=== PATIENT | male | born 1955 | race Caucasian/White ===

== ENCOUNTER 2017-11-14 14:15 | Emergency (ER) | payer SELFPAY ==
[2017-11-14 14:34] VITALS: BP 172/91; PULSE 91; O2SAT 98
--- NOTE | 2017-11-14 14:41 | ERPHSYRPT ---
- History of Present Illness Time Seen by Provider: 11/14/17 14:31 Source: patient Exam Limitations: no limitations Patient Subjective Stated Complaint: pt reports he was trying to remove a tree stump from the ground with a cable and the cable snapped and struck his right knee. pt complains of right knee laceration. Triage Nursing Assessment: pt is aox3, pt afebrile pupils perrl, resps easy and non labored, skin pink warm dry. two lacerations noted to the right knee, the first laceration measures 5cm in length, the more distal laceration measures 2 cm in length. bleeding is controlled. pt sensation is intact. Physician History: 62-year-old white male arrives with complaint of a laceration to his right knee since just prior to arrival. According to the patient he was trying to pull out tree stump out and a cable broke and struck him in the right knee he has laceration across right knee, He is not having any problems walking, Past medical history patient denies, Past surgical history patient denies Method of Injury: other (struck with cable on right knee while trying to pull stump out) Occurred: just prior to arrival Severity of Pain-Max: moderate Severity of Pain-Current: mild Lower Extremities Pain: knee: right Modifying Factors: Improves With: nothing Associated Symptoms: other (laceration right knee) Allergies/Adverse Reactions: Penicillins Allergy (Verified 11/14/17 15:49) Hx Tetanus, Diphtheria Vaccination/Date Given: No Hx Influenza Vaccination/Date Given: No Hx Pneumococcal Vaccination/Date Given: No Immunizations Up to Date: Yes - Review of Systems Constitutional: No Fever, No Chills Eyes: No Symptoms Ears, Nose, & Throat: No Symptoms Respiratory: No Cough, No Dyspnea Cardiac: No Chest Pain, No Edema, No Syncope Abdominal/Gastrointestinal: No Abdominal Pain, No Nausea, No Vomiting, No Diarrhea Genitourinary Symptoms: No Dysuria Musculoskeletal: Other (laceration right knee) Skin: Other (4 cm laceration right anterior knee) Neurological: No Dizziness, No Focal Weakness, No Sensory Changes Psychological: No Symptoms Endocrine: No Symptoms All Other Systems: Reviewed and Negative - Past Medical History Pertinent Past Medical History: No - Past Surgical History Past Surgical History: Yes - Social History Smoking Status: Never smoker Drug Use: none Patient Lives Alone: No - Nursing Vital Signs Nursing Vital Signs: Initial Vital Signs Temperature 97.9 F 11/14/17 14:24 Pulse Rate 91 H 11/14/17 14:24 Respiratory Rate 20 11/14/17 14:24 Blood Pressure 172/91 11/14/17 14:24 O2 Sat by Pulse Oximetry 98 11/14/17 14:24 Pain Scale Pain Intensity 0 - Physical Exam General Appearance: alert Eyes, Ears, Nose, Throat Exam: moist mucous membranes Neck Exam: non-tender, supple Cardiovascular/Respiratory Exam: chest non-tender, normal breath sounds, regular rate/rhythm, no respiratory distress Gastrointestinal/Abdominal Exam: non-tender, guarding Back Exam: normal inspection, No vertebral tenderness Hips Exam: bilateral: non-tender, normal inspection, normal range of motion, no evidence of injury Legs Exam: bilateral leg: non-tender, normal inspection, normal range of motion , no evidence of injury Knees Exam: right knee: other (4 cm laceration right anterior knee), left knee: non-tender, normal inspection, no evidence of injury, bilateral knee: normal range of motion Ankle Exam: bilateral ankle: non-tender, normal inspection, normal range of motion, no evidence of injury Foot Exam: bilateral foot: non-tender, normal inspection, normal range of motion , no evidence of injury Neuro/Tendon Exam: normal sensation, normal motor functions Mental Status Exam: alert, oriented x 3, cooperative Skin Exam: normal color, warm, dry SpO2 Interpretation: normal (98%) SpO2: 98 - Course Nursing assessment & vital signs reviewed: Yes - Radiology Exams Right Knee X-ray Interpretation: Interpreted by me (x-ray right knee: No fractures, no subluxation soft tissue injury overlying patella anteriorly) Ordered Tests: Active Orders 24 hr Category Date Time Status Prepare for Sutures STAT Care 11/14/17 15:20 Active Sutures STAT Care 11/14/17 15:21 Active KNEE (3 VIEWS) Stat Exams 11/14/17 14:36 Taken Medication Summary Discontinued Medications Generic Name Dose Route Start Last Admin Trade Name Freq PRN Reason Stop Dose Admin Bacitracin Zinc 0.9 gm 11/14/17 15:20 11/14/17 16:11 Baciguent Packet TP 11/14/17 15:21 0.9 gm STAT ONE Administration Bacitracin Zinc Confirm 11/14/17 15:51 Baciguent Packet Administered 11/14/17 15:52 Dose 1 gm .ROUTE .STK-MED ONE Diphtheria/Tetanus/Acell Pertussis 0.5 ml 11/14/17 15:20 11/14/17 15:57 Adacel Vial IM 11/14/17 15:21 0.5 ml .ONCE ONE Administration Diphtheria/Tetanus/Acell Pertussis Confirm 11/14/17 15:52 Adacel Vial Administered 11/14/17 15:53 Dose 0.5 ml IM .STK-MED ONE Lidocaine HCl 5 ml 11/14/17 15:20 11/14/17 16:11 Xylocaine 1% Hcl 20 Ml Mdv IJ 11/14/17 15:21 5 ml STAT ONE Administration Lidocaine HCl Confirm 11/14/17 15:52 Xylocaine 1% Hcl 20 Ml Mdv Administered 11/14/17 15:53 Dose 1 ml .ROUTE .STK-MED ONE - Progress Progress: improved Progress Note: 11/14/17 16:22 62-year-old white male arrives with complaint of laceration to his right knee. Patient was apparently trying to pull a stump and he was struck on his right knee with a cable. He has a deep laceration to the right anterior patella he has full range of motion to the right knee. Dorsal pedal posterior tibial pulses are intact. Repair of 4 cm laceration right knee. Laceration sterilely prepped and draped also irrigated by the patient's nurse. Laceration is anesthetized with 1% lidocaine. Laceration is sutured with 9 4-0 Ethilon interrupted sutures. Bacitracin is applied. Asa wrap will be placed for today. Will give patient a right knee immobilizer. Will place patient on clindamycin 300 mg orally 3 times a day 7 days. Will write for [place] for pain. - Departure Time of Disposition: 16:24 Departure Disposition: Home Clinical Impression: Laceration of right knee Qualifiers: Encounter type: initial encounter Qualified Code(s): S81.011A - Laceration without foreign body, right knee, initial encounter Contusion of right knee Qualifiers: Encounter type: initial encounter Qualified Code(s): S80.01XA - Contusion of right knee, initial encounter Condition: Fair Critical Care Time: No Referrals: DIOMEDES FREITAS DO [Primary Care Provider] - Instructions: Laceration Repair With Stitches (DC) Additional Instructions: Return home. Keep area clean and dry bacitracin to area until healed. Sutures out in 10 days. [place] as prescribed. Clindamycin as prescribed. Follow-up with your family doctor Thursday call for an appointment. Return or follow-up with your family doctor if signs of infection or problems. Return for acute distress or for severe symptoms. cold packs right knee 24-48 hours. leave asa wrap on until tomorrow . Prescriptions: Clindamycin HCl 300 mg PO TID #21 capsule Hydrocodone/Acetaminophen [[place] 5-325 Tablet] 1 tab PO Q4-6HPRN PRN #12 tablet MDD 6 tablets PRN Reason: Pain
[2017-11-14] MEDS ORDERED: BACIGUENT PACKET ONE (15:51)
[2017-11-14] MEDS ORDERED: XYLOCAINE 1% HCL 20 ML MDV ONE (15:52)
[2017-11-14] MEDS ORDERED: Adacel Vial IM ONE (15:52)
[2017-11-14] MEDS: Adacel Vial IM ONE (15:57)
[2017-11-14] MEDS: XYLOCAINE 1% HCL 20 ML MDV IJ ONE (16:11)
[2017-11-14] MEDS: BACIGUENT PACKET TP ONE (16:11)
--- NOTE | 2017-11-14 20:51 | XRAY ---
Indication: Pain and laceration following injury. Comparison: None 3 views of the right knee demonstrates anterior soft tissue swelling/laceration with overlying bandage material. Elsewhere mild medial joint space narrowing, small suprapatellar spurring, and mild scattered vascular calcifications. No other bony, articular, or soft tissue abnormalities.
== END 2017-11-14 16:50 | disposition home or self-care (01) ==
LOC: ED 14:15
PROC: 0HQKXZZ Repair Right Lower Leg Skin, External Approach (ICD-10-PCS; principal; 2017-11-14)
DX: S81.011A Laceration without foreign body, right knee, initial encounter (principal); S80.01XA Contusion of right knee, initial encounter; W20.8XXA Other cause of strike by thrown, projected or falling object, initial encounter; Y93.H9 Activity, other involving exterior property and land maintenance, building and construction
CPT/HCPCS: 12002; 73562; 90471; 90715; 96372; 99283; L1830; A9270-GY

== ENCOUNTER 2023-05-07 20:28 | Emergency (ER) | payer MEDICARE ==
[2023-05-07 20:54] VITALS: RESP 18; TEMP 97.6; O2SAT 98
--- NOTE | 2023-05-07 21:12 | ERPHSYRPT ---
- History of Present Illness Time Seen by Provider: 05/07/23 20:48 Source: patient Exam Limitations: no limitations Patient Subjective Stated Complaint: pt states he was watching tv and felt something wet. pt states that he looked down and seen blood coming from his testicles Triage Nursing Assessment: pt ambulated into the er; pt is axo x4; c/o bleeding to rt testicle; pt states burning sensation to rt testicle; no active bleeding to rt testicle at time of assessment; skin PDW; no respiratory distress present; hypertensive Physician History: 67-year-old male not on any blood thinner, no history of blood dyscrasias presented in the ER with complains of right sided scrotal bleeding sudden onset while he was watching TV. Patient reports he felt something wet, scratched and there was bleeding. It continued for almost 20 minutes. Stopped on presentation in the ER. No difficulty urination. No swelling or redness of scrotum reported. No pain. Allergies/Adverse Reactions: Penicillins Allergy (Verified 05/07/23 20:43) Home Medications: No Reportable Medications [No Reported Medications] 05/07/23 [History] Hx Tetanus, Diphtheria Vaccination/Date Given: No (2018) Hx Influenza Vaccination/Date Given: No Hx Pneumococcal Vaccination/Date Given: No Travel Risk - International Travel Have you traveled outside of the country in past 3 weeks: No - Coronavirus Screening Are you exhibiting any of the following symptoms?: No Close contact with a COVID-19 positive Pt in past 14-21 Days: No - Vaccine Status Have you recieved a Covid-19 vaccination: No - Review of Systems Constitutional: No Symptoms Eyes: No Symptoms Respiratory: No Symptoms Cardiac: No Symptoms Abdominal/Gastrointestinal: No Symptoms Genitourinary Symptoms: Other Musculoskeletal: No Symptoms Skin: Skin Lesions Neurological: No Symptoms - Past Medical History Pertinent Past Medical History: No - Past Surgical History Past Surgical History: Yes - Social History Smoking Status: Former smoker Exposure to second hand smoke: No Drug Use: none Patient Lives Alone: No - Nursing Vital Signs Nursing Vital Signs: Initial Vital Signs Temperature 97.6 F 05/07/23 20:43 Pulse Rate 72 05/07/23 20:43 Respiratory Rate 18 05/07/23 20:43 O2 Sat by Pulse Oximetry 98 05/07/23 20:43 Pain Scale Pain Intensity 3 - Physical Exam General Appearance: no apparent distress, alert Eye Exam: PERRL/EOMI Neck Exam: normal inspection, full range of motion Respiratory Exam: normal breath sounds, lungs clear Cardiovascular Exam: regular rate/rhythm, normal heart sounds Male Genitalia Exam: normal genitalia, other (Abrasion right scrotal wall. No active bleeding spurting/oozing. No tenderness. No swelling. No erythema of the scrotum.), No testicular mass Extremity Exam: normal inspection, pelvis stable Neurologic Exam: alert, oriented x 3, cooperative Skin Exam: normal color SpO2 Interpretation: normal SpO2: 98 O2 Delivery: Room Air - Progress Progress: improved Progress Note: 05/07/23 21:09 67-year-old is evaluated in the ER for right scrotal bleeding. I did not appreciate any scrotal swelling. No active bleeding currently. Minimal abrasion. No history of blood dyscrasias and not taking any blood thinner. Bleeding is stopped. Do not think patient needs any workup and is stable for discharge. Recommended supportive care. Counseled pt/family regarding: diagnosis, need for follow-up Medical Desision Making - Independent Historian Additional History obtained from: Spouse - Diagnostic Testing Diagnostic test were ordered, analyzed, and reviewed by me: No - Departure Departure Disposition: Home Clinical Impression: Abrasion of scrotum Condition: Stable Critical Care Time: No Referrals: DEYA SIMMS MD [ACTIVE STAFF] - Follow up with PCP 1 day Instructions: Skin Abrasions (DC) Additional Instructions: Keep it clean and dry. Apply firm pressure. Tylenol/ibuprofen as needed. Return to ER for if started bleeding again, pain swelling etc.
[2023-05-07 21:20] VITALS: BP 154/85; PULSE 71
== END 2023-05-07 21:22 | disposition home or self-care (01) ==
LOC: ED 20:28
DX: S30.813A Abrasion of scrotum and testes, initial encounter (principal); Z20.828 Contact with and (suspected) exposure to other viral communicable diseases
CPT/HCPCS: 99281

== ENCOUNTER 2024-03-15 22:37 | Emergency (ER) | payer MEDICARE ==
[2024-03-15 22:59] VITALS: TEMP 97.3
[2024-03-15 23:06] LABS: Absolute Neutrophil Ct (ANC) 4.55 x10^3/uL (1.78-5.38); BASOPHIL % 0.6 % (0.2-1.2); Basophil (Absolute #) 0.05 x10^3/uL (0.01-0.08); Eosinophil % 2.6 % (0.8-7.0); Eosinophil (Absolute #) 0.23 x10^3/uL (0.04-0.54); Hemoglobin 15.4 g/dL (13.7-17.5); IMMATURE GRAN # 0.02 x10^3u/L (0.001-0.031); IMMATURE GRAN % 0.2 % (0.001-0.429); Lymphocyte (Absolute #) 3.03 x10^3/uL (1.32-3.57); Lymphocytes % 34.8 % (21.8-53.1); Mean Cell Volume 87.3 fL (79.0-92.2); Mean Corpuscular Hemoglobin 29.2 pg (25.7-32.2); Mean Corpuscular Hgb Concent. 33.5 g/dL (32.3-36.5); Mean Platelet Volume 9.8 fL (9.4-12.4); Monocyte (Absolute #) 0.82 x10^3/uL (0.30-0.82); Monocytes % 9.4 % (5.3-12.2); Neutrophil % 52.4 % (34.0-67.9); Platelet Count 281 x10^3/uL (163-337); Red Blood Count 5.27 x10^6/uL (4.63-6.08); Red Cell Distribution Width 13.2 % (11.6-14.4); White Blood Count 8.7 x10^3/uL (4.23-9.07)
[2024-03-15 23:16] LABS: ALBUMIN 4.6 g/dL (3.5-5.0); ANION GAP 11.1 MEQ/L (5-15); BILIRUBIN,TOTAL 0.5 mg/dL (0.2-1.3); Calcium 9.6 mg/dL (8.4-10.2); Creatinine 1 1.17 mg/dL (0.66-1.25); EST GLOMERULAR FILTRATION RATE 67.1 ML/MIN; Potassium 3.9 mmol/L (3.5-5.1); Total Protein 7.8 g/dL (6.3-8.2)
--- NOTE | 2024-03-15 23:34 | ERPHSYRPT ---
- History of Present Illness Time Seen by Provider: 03/15/24 22:45 Historian: patient Exam Limitations: no limitations Patient Subjective Stated Complaint: pt states he was watching tv and began to have chest pain. pt states pain radiates to left arm Triage Nursing Assessment: pt ambulated into the er; pt is axo x 4; c/o chest pain; pt states 7/10 pain to chest and left arm; c/o dizziness; clear apical hear tone; clear lung sounds in all lobes; strong janie radial pulses; strong janie pedal pulses; pt states SOB; no respiratory distress present; skin PDW; hypertensive Physician History: 68-year-old male presents to emergency department for evaluation of left-sided chest pain. Patient states he quit smoking 20 years ago however patient smoked for approximately 40 years prior to quitting. Patient also reports that his father had a heart attack at age 40. Patient does not follow-up regularly with his primary care physician. Patient's chest pain started approximately 1 month ago. Patient experienced pain primarily in his left arm. The symptoms of gotten progressively worse now including his chest jaw teeth and arm. No nausea vomiting or diaphoresis. Symptoms are mild to moderate in intensity. Symptoms worse with exertion. Symptoms improved with rest. Patient voices no other complaints or concerns at this time. Portions of this note were created with voice recognition technology. There may be grammatical, spelling, punctuation or sound alike errors Timing/Duration: today Activities at Onset: activity Quality: aching Location: substernal Chest Pain Radiation: arm Severity of Pain-Max: moderate Severity of Pain-Current: mild Modifying Factors: Improves With: nothing Associated Symptoms: denies symptoms Prior Chest Pain/Cardiac Workup: no prior chest pain Nitro Today/Relief: no nitro taken today Aspirin Treatment Today: no aspirin today Allergies/Adverse Reactions: Penicillins Allergy (Verified 03/15/24 22:41) Home Medications: No Reportable Medications [No Reported Medications] 05/07/23 [History] Hx Tetanus, Diphtheria Vaccination/Date Given: No (2018) Hx Influenza Vaccination/Date Given: No Hx Pneumococcal Vaccination/Date Given: No Travel Risk - International Travel Have you traveled outside of the country in past 3 weeks: No - Emerging Infectious Disease Are you exhibiting symptoms associated with any current EIDs: No - Review of Systems Constitutional: No Symptoms, No Fever, No Chills Eyes: No Symptoms Ears, Nose, & Throat: No Symptoms Respiratory: No Symptoms, No Cough, No Dyspnea Cardiac: No Symptoms, No Chest Pain, No Edema, No Syncope Abdominal/Gastrointestinal: No Symptoms, No Abdominal Pain, No Nausea, No Vomiting, No Diarrhea Genitourinary Symptoms: No Symptoms, No Dysuria Musculoskeletal: No Symptoms, No Back Pain, No Neck Pain Skin: No Symptoms, No Rash Neurological: No Symptoms, No Dizziness, No Focal Weakness, No Sensory Changes Psychological: No Symptoms Endocrine: No Symptoms Hematologic/Lymphatic: No Symptoms Immunological/Allergic: No Symptoms All Other Systems: Reviewed and Negative - Past Medical History Pertinent Past Medical History: No - Past Surgical History Past Surgical History: Yes - Social History Smoking Status: Former smoker Exposure to second hand smoke: No Drug Use: none Patient Lives Alone: No - Social Determinants of Health Will the patient participate in the screening: Yes Do you worry about a steady place to live?: No Do you have any problems with any of the following?: No known problems In the past 12 months,have you had to go without utilities?: No Transportation Issues: No Has anyone in your support network made you feel unsafe?: No Have you or anyone in your house had to go without enough: No - Nursing Vital Signs Nursing Vital Signs: Initial Vital Signs Temperature 97.3 F 03/15/24 22:38 Pulse Rate 60 03/15/24 22:38 Respiratory Rate 22 03/15/24 22:38 Blood Pressure 191/82 03/15/24 22:38 O2 Sat by Pulse Oximetry 100 03/15/24 22:38 Pain Scale Pain Intensity 5 - Physical Exam General Appearance: no apparent distress, alert Eye Exam: PERRL/EOMI, eyes nml inspection Ears, Nose, Throat Exam: normal ENT inspection, moist mucous membranes Neck Exam: normal inspection, non-tender, supple, full range of motion Respiratory Exam: normal breath sounds, lungs clear, airway intact, No respiratory distress Cardiovascular Exam: regular rate/rhythm, normal heart sounds, normal peripheral pulses Gastrointestinal/Abdomen Exam: soft, No tenderness, No mass Back Exam: normal inspection, No CVA tenderness, No vertebral tenderness Extremity Exam: normal inspection, normal range of motion Neurologic Exam: alert, oriented x 3, cooperative, normal mood/affect, sensation nml, No motor deficits Skin Exam: normal color, warm, dry Lymphatic Exam: No adenopathy SpO2 Interpretation: normal SpO2: 99 O2 Delivery: Room Air - Course Nursing assessment & vital signs reviewed: Yes EKG Interpreted by Me: RATE (60), Sinus Rhythm, NORMAL AXIS, NORMAL INTERVALS, NORMAL QRS Ordered Tests: Active Orders 24 hr Category Date Time Status Diploma Maker STAT Care 03/15/24 22:54 Active EKG-ER Only STAT Care 03/15/24 22:54 Active Pulse Oximetry (ED) STAT Care 03/15/24 22:54 Active CHEST 1 VIEW (PORTABLE) Stat Exams 03/15/24 22:55 Taken CBC Q48H Lab 03/17/24 06:00 Ordered CBC Q48H Lab 03/19/24 06:00 Ordered CBC Q48H Lab 03/21/24 06:00 Ordered CBC Q48H Lab 03/23/24 06:00 Ordered CBC Q48H Lab 03/25/24 06:00 Ordered CBC Q48H Lab 03/27/24 06:00 Ordered CBC Q48H Lab 03/29/24 06:00 Ordered CBC Stat Lab 03/16/24 03:10 Ordered CBC W DIFF Stat Lab 03/15/24 22:54 Completed CMP Stat Lab 03/15/24 22:54 Completed D-DIMER QUANTITATIVE Stat Lab 03/15/24 23:34 Completed PROTIME WITH INR Stat Lab 03/16/24 03:10 Ordered PTT Q4H Lab 03/16/24 07:15 Ordered PTT Q4H Lab 03/16/24 11:15 Ordered PTT Q4H Lab 03/16/24 15:15 Ordered PTT Q4H Lab 03/16/24 19:15 Ordered PTT Q4H Lab 03/16/24 23:15 Ordered PTT Q4H Lab 03/17/24 03:15 Ordered PTT Q4H Lab 03/17/24 07:15 Ordered PTT Q4H Lab 03/17/24 11:15 Ordered PTT Q4H Lab 03/17/24 15:15 Ordered PTT Q4H Lab 03/17/24 19:15 Ordered PTT Q4H Lab 03/17/24 23:15 Ordered PTT Stat Lab 03/16/24 03:10 Ordered TROPONIN Q4H Lab 03/15/24 23:00 Completed TROPONIN Q4H Lab 03/16/24 02:00 Completed TROPONIN Q4H Lab 03/16/24 07:00 Ordered Medication Summary Generic Name Dose Route Start Last Admin Trade Name Freq PRN Reason Stop Dose Admin Heparin Sodium/Dextrose 25,000 units in 250 mls @ 10.668 mls/hr 03/16/24 03:30 Heparin 25,000 Units/D5w: Use Order Set Danielito IV 04/15/24 03:29 .[id number] CINDY Protocol 12 UNITS/KG/HR Nitroglycerin/Dextrose 250 mls @ 1.5 mls/hr 03/16/24 03:10 Ntg 0.2mg/Ml In D5w Glass IV 04/15/24 03:09 .Q24H PRN CHEST PAIN Protocol 5 MCG/MIN Discontinued Medications Generic Name Dose Route Start Last Admin Trade Name Fretiffany PRN Reason Stop Dose Admin Aspirin 324 mg 03/15/24 23:32 03/15/24 23:39 Aspirin 81 Mg Tab.Chew PO 03/15/24 23:33 324 mg STAT ONE Administration Aspirin Confirm 03/15/24 23:39 Aspirin 81 Mg Tab.Chew Administered 03/15/24 23:40 Dose 324 mg .ROUTE .STK-MED ONE Heparin Sodium (Beef Lung) 5,000 unit 03/16/24 03:10 Heparin 5000 Units/0.5 Ml 5,000 Unit/0.5 Ml Syr IV 03/16/24 03:11 STAT STA Heparin Sodium (Beef Lung) Confirm 03/16/24 03:15 Heparin 5000 Units/0.5 Ml 5,000 Unit/0.5 Ml Syr Administered 03/16/24 03:16 Dose 5,000 unit .ROUTE .STK-MED ONE Morphine Sulfate 4 mg 03/16/24 03:11 Morphine Sulfate 4 Mg/Ml Injection IV 03/16/24 03:12 STAT ONE Morphine Sulfate Confirm 03/16/24 03:15 Morphine Sulfate 4 Mg/Ml Injection Administered 03/16/24 03:16 Dose 4 mg .ROUTE .STK-MED ONE Nitroglycerin 1 gm 03/15/24 23:32 03/15/24 23:40 Nitroglycerin 1 Gm Packet TOP 03/15/24 23:33 1 gm STAT ONE Administration Nitroglycerin Confirm 03/15/24 23:39 Nitroglycerin 1 Gm Packet Administered 03/15/24 23:40 Dose 1 gm .ROUTE .STK-MED ONE Ondansetron HCl 4 mg 03/16/24 03:11 Ondansetron Hcl 4 Mg/2 Ml Vial IV 03/16/24 03:12 STAT ONE Ondansetron HCl Confirm 03/16/24 03:15 Ondansetron Hcl 4 Mg/2 Ml Vial Administered 03/16/24 03:16 Dose 4 mg .ROUTE .[facility]-MED ONE Lab/Rad Data: Laboratory Result Diagrams 03/15/24 22:54 03/15/24 22:54 Laboratory Results 03/16/24 03/15/24 03/15/24 Range/Units 02:00 Unknown 23:34 WBC (4.23-9.07) x10^3/uL RBC (4.63-6.08) x10^6/uL Hgb (13.7-17.5) g/dL Hct (40.1-51.0) % MCV (79.0-92.2) fL MCH (25.7-32.2) pg MCHC (32.3-36.5) g/dL RDW (11.6-14.4) % Plt Count (163-337) x10^3/uL MPV (9.4-12.4) fL Gran % (34.0-67.9) % Immature Gran % (Auto) (0.001-0.429) % Nucleat RBC Rel Count (0.00-0.2) % Eos # (Auto) (0.04-0.54) x10^3/uL Immature Gran # (Auto) (0.001-0.031) x10^3u/L Absolute Lymphs (auto) (1.32-3.57) x10^3/uL Absolute Monos (auto) (0.30-0.82) x10^3/uL Absolute Nucleated RBC (0.00-0.012) x10^3u/L Lymphocytes % (21.8-53.1) % Monocytes % (5.3-12.2) % Eosinophils % (0.8-7.0) % Basophils % (0.2-1.2) % Absolute Granulocytes (1.78-5.38) x10^3/uL Basophils # (0.01-0.08) x10^3/uL D-Dimer 0.36 (0.0-0.50) mg/L Sodium (135-145) mmol/L Potassium (3.5-5.1) mmol/L Chloride (98-107) mmol/L Carbon Dioxide (22-30) mmol/L Anion Gap (5-15) MEQ/L BUN (9-20) mg/dL Creatinine (0.66-1.25) mg/dL Estimated GFR ML/MIN Glucose (74-106) mg/dL Calcium (8.4-10.2) mg/dL Total Bilirubin (0.2-1.3) mg/dL AST (17-59) U/L ALT (0-50) U/L Alkaline Phosphatase (38-126) U/L Troponin I 0.079 H* (0.000-0.033) ng/mL NT-Pro-B Natriuret Pep 65.6 (<300) pg/mL Serum Total Protein (6.3-8.2) g/dL Albumin (3.5-5.0) g/dL 03/15/24 03/15/24 03/15/24 Range/Units 23:00 22:54 22:54 WBC 8.7 (4.23-9.07) x10^3/uL RBC 5.27 (4.63-6.08) x10^6/uL Hgb 15.4 (13.7-17.5) g/dL Hct 46.0 (40.1-51.0) % MCV 87.3 (79.0-92.2) fL MCH 29.2 (25.7-32.2) pg MCHC 33.5 (32.3-36.5) g/dL RDW 13.2 (11.6-14.4) % Plt Count 281 (163-337) x10^3/uL MPV 9.8 (9.4-12.4) fL Gran % 52.4 (34.0-67.9) % Immature Gran % (Auto) 0.2 (0.001-0.429) % Nucleat RBC Rel Count 0.0 (0.00-0.2) % Eos # (Auto) 0.23 (0.04-0.54) x10^3/uL Immature Gran # (Auto) 0.02 (0.001-0.031) x10^3u/L Absolute Lymphs (auto) 3.03 (1.32-3.57) x10^3/uL Absolute Monos (auto) 0.82 (0.30-0.82) x10^3/uL Absolute Nucleated RBC 0.00 (0.00-0.012) x10^3u/L Lymphocytes % 34.8 (21.8-53.1) % Monocytes % 9.4 (5.3-12.2) % Eosinophils % 2.6 (0.8-7.0) % Basophils % 0.6 (0.2-1.2) % Absolute Granulocytes 4.55 (1.78-5.38) x10^3/uL Basophils # 0.05 (0.01-0.08) x10^3/uL D-Dimer (0.0-0.50) mg/L Sodium 138 (135-145) mmol/L Potassium 3.9 (3.5-5.1) mmol/L Chloride 103 (98-107) mmol/L Carbon Dioxide 28 (22-30) mmol/L Anion Gap 11.1 (5-15) MEQ/L BUN 24 H (9-20) mg/dL Creatinine 1.17 (0.66-1.25) mg/dL Estimated GFR 67.1 ML/MIN Glucose 102 (74-106) mg/dL Calcium 9.6 (8.4-10.2) mg/dL Total Bilirubin 0.50 (0.2-1.3) mg/dL AST 27 (17-59) U/L ALT 21 (0-50) U/L Alkaline Phosphatase 59 (38-126) U/L Troponin I < 0.012 (0.000-0.033) ng/mL NT-Pro-B Natriuret Pep (<300) pg/mL Serum Total Protein 7.8 (6.3-8.2) g/dL Albumin 4.6 (3.5-5.0) g/dL - Progress Progress: improved Air Movement: good Progress Note: Case discussed with Dr. Simmons ER physician at [facility] who accepts transfer at 3:25 AM. 03/16/24 03:26 Blood Culture(s) Obtained: No Antibiotics given: No Counseled pt/family regarding: lab results, diagnosis, rad results - Departure Departure Disposition: Home Clinical Impression: NSTEMI (non-ST elevated myocardial infarction), ACS (acute coronary syndrome), Chest pain, Elevated cardiac troponin Condition: Stable Critical Care Time: No Referrals: DOCTOR,NO FAMILY [Primary Care Provider] - Follow up/PCP as directed
[2024-03-15] MEDS ORDERED: NITRO-BID 2% UD PACKETS ONE (23:39)
[2024-03-15] MEDS: BABY ASPIRIN 81 MG CHEW PO ONE (23:39)
[2024-03-15] MEDS ORDERED: BABY ASPIRIN 81 MG CHEW ONE (23:39)
[2024-03-15] MEDS: NITRO-BID 2% UD PACKETS TOP ONE (23:40)
[2024-03-16] MEDS ORDERED: MORPHINE SULFATE 4 MG INJ ONE (03:15)
[2024-03-16] MEDS ORDERED: HEPARIN 5000 UNITS/0.5 ML (HIGH RISK MED) ONE (03:15)
[2024-03-16] MEDS ORDERED: Zofran 4 MG/2 ML VIAL ONE (03:15)
[2024-03-16] MEDS ORDERED: Heparin 25,000 units/D5W: USE ORDER SET PROTO 25,000 UNITS/250 ML BAG IV ONE (03:16)
[2024-03-16] MEDS ORDERED: Ntg 0.2MG/Ml in D5W GLASS*** 250 ML IV ONE (03:16)
[2024-03-16] MEDS: Zofran 4 MG/2 ML VIAL IV ONE (03:18)
[2024-03-16] MEDS: MORPHINE SULFATE 4 MG INJ IV ONE (03:19)
[2024-03-16] MEDS: HEPARIN 5000 UNITS/0.5 ML (HIGH RISK MED) IV STA (03:22)
[2024-03-16] MEDS: Heparin 25,000 units/D5W: USE ORDER SET PROTO 25,000 UNITS/250 ML BAG IV SCH (03:25)
[2024-03-16] MEDS: Ntg 0.2MG/Ml in D5W GLASS*** 250 ML IV PRN (03:28)
[2024-03-16 03:29] LABS: Mean Cell Volume 87.4 fL (79.0-92.2); Mean Corpuscular Hemoglobin 29.1 pg (25.7-32.2); Mean Corpuscular Hgb Concent. 33.3 g/dL (32.3-36.5); Mean Platelet Volume 9.4 fL (9.4-12.4); Platelet Count 259 x10^3/uL (163-337); Red Blood Count 5.15 x10^6/uL (4.63-6.08); Red Cell Distribution Width 13.2 % (11.6-14.4); White Blood Count 6.9 x10^3/uL (4.23-9.07)
[2024-03-16 03:42] LABS: PROTIME 10.9 SECONDS (9.4-12.5); PTT 63.3 SECONDS (25.1-36.5)
[2024-03-16 04:05] VITALS: BP 126/71; PULSE 63; RESP 18; O2SAT 98
--- NOTE | 2024-03-16 08:49 | XRAY ---
Indication: Pain. Comparison: None Portable chest slightly underinflated and clear. Heart not enlarged. Bony thorax intact. Impression: Nonacute underinflated chest.
== END 2024-03-16 03:55 | disposition short-term general hospital (02) ==
LOC: ED 22:37
DX: I21.4 Non-ST elevation (NSTEMI) myocardial infarction (principal); I24.9 Acute ischemic heart disease, unspecified; R07.9 Chest pain, unspecified; R77.8 Other specified abnormalities of plasma proteins
CPT/HCPCS: 36415; 71045; 80053; 83880; 84484; 85025; 85027; 85379; 85610; 85730; 93005; 93041; 94760; 96374; 96375; 99285; J1644; J2270; J2405; A9270-GY